=== PATIENT | female | born 1950 | race Caucasian/White ===

== ENCOUNTER 2017-05-09 08:45 | Inpatient (IN) | payer MEDICARE, BC ==
[2017-05-09 09:11] VITALS: BMI 23.9
[2017-05-16] MEDS ORDERED: Sodium Chloride 0.9% 0 ML ONE (08:41)
[2017-05-16] MEDS ORDERED: traMADol HCl 50 MG TAB PO PRN ×2 (08:47→09:34)
[2017-05-16] MEDS ORDERED: HYDROcodone/Acetaminophen 10/325 mg Tablet PO PRN ×4 (08:47→09:34)
[2017-05-16] MEDS ORDERED: Ondansetron HCl/PF 4 MG/2 ML Vial IVP PRN ×3 (08:47→11:11)
[2017-05-16] MEDS ORDERED: Fentanyl 100 MCG/2 ML VIAL SLOW IVP PRN ×2 (08:47)
[2017-05-16] MEDS ORDERED: Acetaminophen 325 MG TAB PO PRN (08:47)
[2017-05-16] MEDS ORDERED: diphenhydrAMINE HCl 25 MG CAP PO PRN (08:47)
[2017-05-16] MEDS ORDERED: Zolpidem Tartrate 5 MG TAB PO PRN ×2 (08:47→09:34)
[2017-05-16] MEDS ORDERED: Promethazine HCl 25 MG/ML VIAL IM PRN ×3 (08:47→11:11)
[2017-05-16] MEDS ORDERED: Fentanyl 100 MCG/2 ML VIAL ONE ×4 (08:50→11:32)
[2017-05-16] MEDS ORDERED: Midazolam HCl 2 mg/2 ml Vial ONE (08:58)
[2017-05-16] MEDS ORDERED: Ferrous Gluconate 324 MG TAB PO SCH (09:00)
[2017-05-16] MEDS ORDERED: Tranexamic Acid 1,000 MG in Sodium Chloride 0.9% 100 ML IVPB SCH (09:00)
[2017-05-16] MEDS ORDERED: Bupivacaine/Epinephrine 0.5% 10 ML VIAL ONE (09:17)
[2017-05-16] MEDS ORDERED: Ropivacaine HCl/PF 250 ML in Premix Bag 1 BAG NERVE BLCK SCH (09:34)
[2017-05-16] MEDS ORDERED: Fentanyl 100 MCG/2 ML VIAL IV PRN (09:35)
[2017-05-16] MEDS ORDERED: Ondansetron HCl/PF 4 MG/2 ML Vial ONE (09:55)
[2017-05-16] MEDS ORDERED: ePHEDrine/0.9% NaCl/PF SYRINGE 50 mg/10 ml ONE (09:55)
[2017-05-16] MEDS ORDERED: Dexamethasone 20 MG/5 ML VIAL ONE (09:55)
[2017-05-16] MEDS ORDERED: Propofol 200 MG/20 ML VIAL ONE (09:55)
[2017-05-16] MEDS ORDERED: Promethazine HCl 25 MG/ML VIAL SLOW IVP PRN (11:11)
[2017-05-16] MEDS ORDERED: HYDROmorphone 2 MG/ML VIAL SLOW IVP PRN (11:11)
[2017-05-16] MEDS ORDERED: Clindamycin/D5W 900 MG in Premix Bag 1 BAG IVPB SCH (12:00)
[2017-05-16] MEDS ORDERED: Ketorolac Tromethamine 30 MG/ML VIAL IM SCH (14:00)
--- NOTE | 2017-05-16 14:03 | RAD ---
TWO VIEWS LEFT KNEE: Date: 05-16-17 History: Post left total knee replacement. FINDINGS: Post-surgical changes related to left total knee replacement. There is no hardware complication seen . Subcutaneous emphysema is present with gas overlying a suprapatellar location related to recent po st-surgical change. There is no fracture or dislocation. IMPRESSION: Post-surgical changes related to recent left total knee replacement. POS: [facility]
[2017-05-16] MEDS: Sodium Chloride 0.9% 1,000 ML IV SCH ×2 (14:15→17:22)
[2017-05-16] MEDS: Senokot S 8.6-50 MG TAB PO SCH ×2 (14:15→20:22)
[2017-05-16] MEDS: Aspirin 325 MG TAB PO SCH ×2 (14:15→20:22)
[2017-05-16] MEDS: Citrucel 500 MG TAB PO SCH (14:15)
[2017-05-16] MEDS: Ketorolac Tromethamine 30 MG/ML VIAL IVP SCH ×6 (14:41→20:59)
--- NOTE | 2017-05-16 15:39 | CON ---
DATE OF CONSULTATION: 05/16/2017 PRIMARY CARE PROVIDER: Dr. Yahir Perkins. REFERRING DOCTOR: Dr. Hunter Fraser. Consult for medical management of postoperative patient. HISTORY OF PRESENT ILLNESS: The patient with chronic degenerative arthritis, is now left total knee replacement. She required knee replacement for continuing activities of daily living such as stand ing and walking. Postoperatively, she has had no chest pain, shortness of breath, nausea, vomiting, chills, or sweats. PAST MEDICAL HISTORY: Pertinent for Crohn's disease, stress incontinence, mitral prolapse, and oste oarthritis. HOME MEDICINES: Include Myrbetriq 25 mg a day, Citrucel 500 mg daily, ibuprofen 200 mg q.6 hours fo r pain, aspirin 325 mg a day, Colazal 2250 mg p.o. t.i.d. ALLERGIES: To CODEINE, nausea and vomiting and SULFA allergy rash. PAST SURGICAL HISTORY: Appendectomy, tonsillectomy, tubal ligation, both in the distant past. FAMILY HISTORY: Father very young. Mother of Alzheimer's disease. She has an uncle who is with coronary artery disease. Grandmother who with coronary artery disease and ano ther uncle with diabetes mellitus. SOCIAL HISTORY: , at bedside. CODE STATUS: FULL CODE STATUS. TOBACCO: None. ALCOHOL: She has 2 cocktails daily, usually 1 with [place] or with white wine. REVIEW OF SYSTEMS: GENERAL: No headaches, dizziness, fainting, fever, sweats or chills. EYES: Igor copeland has astigmatism and has poor vision without her glasses. She has had no double vision, flashing l ights. EARS, NOSE, AND THROAT: No ear pain or drainage. No nasal bleeding. No trouble swallowing . CARDIAC: No chest pain, orthopnea or paroxysmal nocturnal dyspnea. RESPIRATORY: No cough, whee zing or asthma. GASTROINTESTINAL: She has occasional flares of abdominal pain and diarrhea, maybe once or twice a year. She has had nothing recently. No blood in her stools. GENITOURINARY: She h as stress incontinence, no hematuria or dysuria. MUSCULOSKELETAL: No pain or swelling in the muscl es of her legs. She does have aches and pains in multiple joints. NEUROLOGIC: No strokes, seizure s or focal weakness. PSYCHIATRIC: No anxiety or depression. SKIN: No bruising, bleeding or rash. HEME/LYMPH: No tender or swollen lymph nodes in axilla, inguinal or cervical area. PHYSICAL EXAMINATION: GENERAL: She is an alert, pleasant, cooperative lady, family at bedside. VITAL SIGNS: Blood pressure 151/84, pulse 78, respirations 16, temperature 97.2, O2 sat 96%. HEENT: Examination of her head, eyes, ears, nose, and throat reveal pupils equal, round, and reacti ve. Extraocular movements are intact. Sclerae white. Tympanic membranes clear. Nose clear. Oral mucous membranes are wet. Dental hygiene is good. NECK: Reveals no jugular venous distention, adenopathy, thyromegaly or bruits. CHEST: Clear to auscultation and percussion. HEART: Had regular rate and rhythm. First and second heart sounds were audible. She had a soft in termittent 2/6 systolic murmur at left sternal border. ABDOMEN: Soft, bowel sounds are normal. There is no hepatosplenomegaly, no mass, no rebound, no br uits. EXTREMITIES: Reveal no cyanosis, clubbing or edema. SKIN: Warm and dry without bruises or rash. PULSES: Carotid, radial, femoral, and dorsalis pedis pulses intact. HEME/LYMPH: There are no enlarged or tender lymph nodes in axilla, inguinal or cervical area. NEUROLOGICAL: Cranial nerves II-XII are intact. Moved all extremities. Sensation intact. IMAGING AND LABORATORY DATA: There is an electrocardiogram on the chart, which I have reviewed. Re gular sinus rhythm, right axis deviation. EKG is within normal limits. No x-ray is presented. Lab oratory was done as an outpatient. CBC, normal. PT/INR, normal. Basic metabolic profile normal. Urine clear. All reviewed by me. ADMITTING DIAGNOSES: 1. Postoperative left total knee replacement. 2. Severe osteoarthritis. 3. Crohn's disease, currently quiescent. 4. Stress incontinence. 5. Mitral prolapse. The patient has been seen, examined and evaluated. She is currently stable, d oing well postoperatively. We will follow with you.
[2017-05-16] MEDS: Calcium Carbonate + Vit D 1 TAB PO SCH (20:24)
[2017-05-17] MEDS: traMADol HCl 50 MG TAB PO PRN ×3 (04:48→15:07)
[2017-05-17] MEDS: Sodium Chloride 0.9% 1,000 ML IV SCH ×2 (05:03→15:32)
[2017-05-17 05:39] LABS: Hematocrit 35.7 % (36.0-47.0); Mean Platelet Volume 7.4 fL (7.4-10.4); Red Blood Cell (RBC) Count 3.67 mill/uL (4.20-5.40); White Blood Cell (WBC) Count 10.1 thou/uL (4.8-10.8)
[2017-05-17] MEDS: Ferrous Gluconate 324 MG TAB PO SCH ×2 (08:07→21:45)
[2017-05-17] MEDS: Senokot S 8.6-50 MG TAB PO SCH ×2 (08:07→21:42)
[2017-05-17] MEDS: Calcium Carbonate + Vit D 1 TAB PO SCH ×2 (08:08→21:42)
[2017-05-17] MEDS: Multivitamin W/ Minerals 1 TAB PO SCH (08:08)
[2017-05-17] MEDS: Aspirin 325 MG TAB PO SCH ×2 (08:08→21:43)
[2017-05-17] MEDS: Ketorolac Tromethamine 30 MG/ML VIAL IVP SCH ×3 (08:27→21:44)
--- NOTE | 2017-05-17 09:46 | PDOC.PN ---
- Subjective Encounter Start Date: 05/17/17 Encounter Start Time: 07:00 -: old records requested/rev - Objective MAR Reviewed: Yes Vital Signs & Weight: Vital Signs (12 hours) Temp Pulse Resp BP Pulse Ox 05/17/17 07:40 98 F 70 18 123/74 99 05/17/17 03:52 98 F 80 16 136/77 05/17/17 00:11 80 121/71 Weight Weight 144 lb I&O: 05/16/17 05/17/17 05/18/17 06:59 06:59 06:59 Intake Total 400 Output Total 1100 Balance -700 Result Diagrams: 05/17/17 04:40 Phys Exam - Physical Examination Constitutional: NAD HEENT: PERRLA, moist MMs, sclera anicteric Neck: no JVD, supple Respiratory: no wheezing, no rales, no rhonchi Cardiovascular: RRR, no significant murmur, no rub Gastrointestinal: soft, non-tender, no distention, positive bowel sounds Musculoskeletal: no edema, pulses present left knee with dressing, nerve block in place, gutierrez+ Neurological: non-focal, normal sensation Psychiatric: normal affect, A&O x 3 Skin: no rash, normal turgor Dx/Plan (1) Status post total left knee replacement Code(s): Z96.652 - PRESENCE OF LEFT ARTIFICIAL KNEE JOINT Status: Acute (2) Osteoarthritis Code(s): M19.90 - UNSPECIFIED OSTEOARTHRITIS, UNSPECIFIED SITE Status: Chronic (3) Crohn's disease Code(s): K50.90 - CROHN'S DISEASE, UNSPECIFIED, WITHOUT COMPLICATIONS Status: Chronic - Plan cont current plan of care, PT/OT * continue aspirin for DVT prophylaxis * continue pepcid for GI prophylaxis * code status- full code * PT/OT as per [facility] protocol * pain controlled * continue home medication * nerve block as per anesthesia. Review of Systems - Review of Systems ENT: negative: Ear Pain, Ear Discharge, Nose Pain, Nose Discharge, Nose Congestion, Mouth Pain, Mouth Swelling, Throat Pain, Throat Swelling, Other Respiratory: negative: Cough, Dry, Shortness of Breath, Hemoptysis, SOB with Excertion, Pleuritic Pain, Sputum, Wheezing Cardiovascular: negative: Chest Pain, Palpitations, Orthopnea, Paroxysmal Noc. Dyspnea, Edema, Light Headedness, Other Gastrointestinal: negative: Nausea, Vomiting, Abdominal Pain, Diarrhea, Constipation, Melena, Hematochezia, Other Genitourinary: negative: Dysuria, Frequency, Incontinence, Hematuria, Retention , Other Musculoskeletal: negative: Neck Pain, Shoulder Pain, Arm Pain, Back Pain, Hand Pain, Leg Pain, Foot Pain, Other - Medications/Allergies Allergies/Adverse Reactions: Allergies Allergy/AdvReac Type Severity Reaction Status Date / Time codeine Allergy violently Verified 05/09/17 09:12 ill Sulfa (Sulfonamide Allergy Verified 05/09/17 09:12 Antibiotics) Medications: Current Medications Acetaminophen (Tylenol) 650 mg PO Q4H PRN PRN Reason: ZHANG/ T > 101F; Mild Pain (1-3) Hydrocodone Bitart/Acetaminophen ([place] 10/325) 1 tab PO Q4H PRN PRN Reason: Pain (1-3) Hydrocodone Bitart/Acetaminophen ([place] 10/325) 2 tab PO Q4H PRN PRN Reason: PAIN (4-6) Aspirin (Aspirin) 325 mg PO BID [facility] Last Admin: 05/17/17 08:08 Dose: 325 mg Balsalazide (Colazal) 2,250 mg PO TID [facility] Last Admin: 05/17/17 08:08 Dose: 1,500 mg Calcium/Vitamin D (Caltrate 600 + Vit D) 1 tab PO BID [facility] Last Admin: 05/17/17 08:08 Dose: 1 tab Diphenhydramine HCl (Benadryl) 25 mg PO Q6H PRN PRN Reason: Itching Fentanyl (Sublimaze) 50 mcg IV Q1H PRN PRN Reason: Breakthrough pain Ferrous Gluconate (Fergon) 324 mg PO BID [facility] Last Admin: 05/17/17 08:07 Dose: 324 mg Sodium Chloride (Normal Saline 0.9%) 1,000 mls @ 100 mls/hr IV .Q10H [facility] Last Admin: 05/17/17 05:03 Dose: Not Given Ropivacaine 250 ml/ Device 250 mls @ 10 mls/hr NERVE BLCK INF [facility] Iron/Minerals/Multivitamins (Theragran M) 1 tab PO DAILY [facility] Last Admin: 05/17/17 08:08 Dose: 1 tab Ketorolac Tromethamine (Toradol) 15 mg IVP 0300,0900,1500,2100 [facility] Stop: 05/18/17 15:01 Last Admin: 05/17/17 08:27 Dose: 15 mg Methylcellulose (Citrucel) 500 mg PO DAILY [facility] Last Admin: 05/16/17 14:15 Dose: Not Given Mirabegron (Myrbetriq Er) 25 mg PO QAM [facility] Last Admin: 05/17/17 09:38 Dose: 25 mg Ondansetron HCl (Zofran) 4 mg IVP Q6H PRN PRN Reason: Nausea/Vomiting Ondansetron HCl (Zofran) 4 mg IVP Q6H PRN PRN Reason: Nausea/Vomiting Promethazine HCl (Phenergan) 12.5 mg IM Q4H PRN PRN Reason: Nausea/Vomiting Promethazine HCl (Phenergan) 12.5 mg IM Q4H PRN PRN Reason: Nausea Senna/Docusate Sodium (Senokot S) 2 tab PO BID [facility] Last Admin: 05/17/17 08:07 Dose: 2 tab Sodium Chloride (Flush - Normal Saline) 10 ml IVF PRN PRN PRN Reason: Saline Flush Tramadol HCl (Ultram) 50 mg PO Q6H PRN PRN Reason: Mild Pain (1-3) Tramadol HCl (Ultram) 100 mg PO Q6H PRN PRN Reason: Moderate Pain 4-6 Last Admin: 05/17/17 04:48 Dose: 100 mg Zolpidem Tartrate (Ambien) 5 mg PO HSPRN PRN PRN Reason: Insomnia
[2017-05-17] MEDS ORDERED: Milk Of Magnesia 30 ML UDCUP PO PRN (09:47)
[2017-05-17] MEDS ORDERED: Loperamide HCl 2 MG CAP PO PRN (09:47)
[2017-05-17] MEDS ORDERED: Artificial Tears 18 DROP/0.9 ML EA EYE PRN (09:47)
[2017-05-17] MEDS ORDERED: Diabetic Tussin 200 MG/10 ML UDCUP PO PRN (09:47)
[2017-05-17] MEDS ORDERED: Eucerin (Mineral Oil/Petrolatum,White) 30 gm Jar TOP PRN (09:47)
[2017-05-17] MEDS ORDERED: Loratadine 10 MG TAB PO PRN (09:47)
[2017-05-17] MEDS ORDERED: Mag-Al 1200 mg/1200 mg/30 ML UDCUP PO PRN (09:47)
[2017-05-17] MEDS ORDERED: Senokot 8.6 MG TAB PO PRN (09:47)
[2017-05-17] MEDS ORDERED: Sodium Chloride 0.65% Nasal 44 ML BOT EA NARE PRN (09:47)
[2017-05-17] MEDS: Citrucel 500 MG TAB PO SCH (10:05)
[2017-05-17] MEDS: Famotidine 20 MG TAB PO SCH (21:44)
[2017-05-18] MEDS: Sodium Chloride 0.9% 1,000 ML IV SCH (00:02)
[2017-05-18] MEDS: Ketorolac Tromethamine 30 MG/ML VIAL IVP SCH ×2 (04:00→08:17)
[2017-05-18 05:16] LABS: Mean Platelet Volume 7.1 fL (7.4-10.4); Red Blood Cell (RBC) Count 3.41 mill/uL (4.20-5.40); White Blood Cell (WBC) Count 7.6 thou/uL (4.8-10.8)
[2017-05-18] MEDS ORDERED: oxyCODONE/Acetaminophen 5 mg/325 mg Tablet PO PRN (07:38)
[2017-05-18] MEDS: Famotidine 20 MG TAB PO SCH (08:16)
[2017-05-18] MEDS: Ondansetron ODT 4 MG TAB PO PRN ×2 (08:16→14:02)
[2017-05-18] MEDS: Aspirin 325 MG TAB PO SCH (08:17)
[2017-05-18] MEDS: Calcium Carbonate + Vit D 1 TAB PO SCH (08:17)
[2017-05-18] MEDS: Senokot S 8.6-50 MG TAB PO SCH (08:17)
[2017-05-18] MEDS: Ferrous Gluconate 324 MG TAB PO SCH (09:30)
[2017-05-18] MEDS: Multivitamin W/ Minerals 1 TAB PO SCH (09:30)
[2017-05-18] MEDS: Citrucel 500 MG TAB PO SCH (09:30)
[2017-05-18] MEDS: oxyCODONE/Acetaminophen 5 mg/325 mg Tablet PO PRN ×2 (09:37→14:36)
--- NOTE | 2017-05-18 11:27 | PDOC.PN ---
- Subjective Encounter Start Date: 05/18/17 Encounter Start Time: 07:10 Patient seen and examined. No new complaints. No overnight events - Objective MAR Reviewed: Yes Vital Signs & Weight: Vital Signs (12 hours) Temp Pulse Resp BP Pulse Ox 05/18/17 08:00 98.5 F 83 16 94 L 05/18/17 07:40 98.5 F 83 16 136/80 94 L 05/18/17 05:13 98.9 F 74 16 126/78 99 05/18/17 00:00 98.1 F 74 16 108/68 96 Weight Admit Weight 144 lb Weight 144 lb I&O: 05/17/17 05/18/17 05/19/17 06:59 06:59 06:59 Intake Total 400 221.0 480 Output Total 1100 3800 1900 Balance -700 -3579.0 -1420 Result Diagrams: 05/18/17 04:50 Phys Exam - Physical Examination Constitutional: NAD HEENT: PERRLA, moist MMs, sclera anicteric Neck: no JVD, supple Respiratory: no wheezing, no rales, no rhonchi Cardiovascular: RRR, no significant murmur, no rub Gastrointestinal: soft, non-tender, no distention, positive bowel sounds Musculoskeletal: no edema, pulses present Neurological: non-focal, normal sensation, moves all 4 limbs Psychiatric: normal affect, A&O x 3 Skin: no rash, normal turgor Dx/Plan (1) Status post total left knee replacement Code(s): Z96.652 - PRESENCE OF LEFT ARTIFICIAL KNEE JOINT Status: Acute (2) Osteoarthritis Code(s): M19.90 - UNSPECIFIED OSTEOARTHRITIS, UNSPECIFIED SITE Status: Chronic (3) Crohn's disease Code(s): K50.90 - CROHN'S DISEASE, UNSPECIFIED, WITHOUT COMPLICATIONS Status: Chronic - Plan cont current plan of care, PT/OT * medication reviewed as below * medically stable with current treatment * symptomatic treatment * continue aspirin for DVT prophylaxis * continue pepcid for GI prophylaxis * plan for discharge later today * will sign off. Review of Systems - Review of Systems ENT: negative: Ear Pain, Ear Discharge, Nose Pain, Nose Discharge, Nose Congestion, Mouth Pain, Mouth Swelling, Throat Pain, Throat Swelling, Other Respiratory: negative: Cough, Dry, Shortness of Breath, Hemoptysis, SOB with Excertion, Pleuritic Pain, Sputum, Wheezing Cardiovascular: negative: Chest Pain, Palpitations, Orthopnea, Paroxysmal Noc. Dyspnea, Edema, Light Headedness, Other Gastrointestinal: negative: Nausea, Vomiting, Abdominal Pain, Diarrhea, Constipation, Melena, Hematochezia, Other Genitourinary: negative: Dysuria, Frequency, Incontinence, Hematuria, Retention , Other Musculoskeletal: negative: Neck Pain, Shoulder Pain, Arm Pain, Back Pain, Hand Pain, Leg Pain, Foot Pain, Other - Medications/Allergies Allergies/Adverse Reactions: Allergies Allergy/AdvReac Type Severity Reaction Status Date / Time codeine Allergy violently Verified 05/09/17 09:12 ill Sulfa (Sulfonamide Allergy Verified 05/09/17 09:12 Antibiotics) Medications: Current Medications Acetaminophen (Tylenol) 650 mg PO Q4H PRN PRN Reason: ZHANG/ T > 101F; Mild Pain (1-3) Al Hydroxide/Mg Hydroxide (Maalox) 15 ml PO Q4H PRN PRN Reason: Heartburn or Indigestion Artificial Tears (Tears Naturale) 0 drop EA EYE PRN PRN PRN Reason: Dry Eyes Aspirin (Aspirin) 325 mg PO BID [facility] Last Admin: 05/18/17 08:17 Dose: 325 mg Balsalazide (Colazal) 2,250 mg PO TID [facility] Last Admin: 05/18/17 08:17 Dose: 1,500 mg Calcium/Vitamin D (Caltrate 600 + Vit D) 1 tab PO BID [facility] Last Admin: 05/18/17 08:17 Dose: 1 tab Diphenhydramine HCl (Benadryl) 25 mg PO Q6H PRN PRN Reason: Itching Famotidine (Pepcid) 20 mg PO BID [facility] Last Admin: 05/18/17 08:16 Dose: 20 mg Fentanyl (Sublimaze) 50 mcg IV Q1H PRN PRN Reason: Breakthrough pain Ferrous Gluconate (Fergon) 324 mg PO BID [facility] Last Admin: 05/18/17 09:30 Dose: Not Given Guaifenesin (Robitussin Sf) 200 mg PO Q4H PRN PRN Reason: Cough Hydralazine HCl (Apresoline) 10 mg SLOW IVP Q4H PRN PRN Reason: Systolic BP > 180 Sodium Chloride (Normal Saline 0.9%) 1,000 mls @ 100 mls/hr IV .Q10H [facility] Last Admin: 05/18/17 00:02 Dose: Not Given Ropivacaine 250 ml/ Device 250 mls @ 10 mls/hr NERVE BLCK INF [facility] Last Admin: 05/17/17 12:18 Dose: 250 mls Iron/Minerals/Multivitamins (Theragran M) 1 tab PO DAILY [facility] Last Admin: 05/18/17 09:30 Dose: 1 tab Ketorolac Tromethamine (Toradol) 15 mg IVP 0300,0900,1500,2100 [facility] Stop: 05/18/17 15:01 Last Admin: 05/18/17 08:17 Dose: 15 mg Loperamide HCl (Imodium) 2 mg PO PRN PRN PRN Reason: Diarrhea/Loose Stools Loratadine (Claritin) 10 mg PO DAILYPRN PRN PRN Reason: Sinus Symptoms Magnesium Hydroxide (Milk Of Magnesium) 30 ml PO DAILYPRN PRN PRN Reason: Constipation Methylcellulose (Citrucel) 500 mg PO DAILY [facility] Last Admin: 05/18/17 09:30 Dose: Not Given Mineral Oil/White Petrolatum (Eucerin Cream) 0 gm TOP BIDPRN PRN PRN Reason: Dry Skin Mirabegron (Myrbetriq Er) 25 mg PO QAM [facility] Last Admin: 05/18/17 08:17 Dose: 25 mg Ondansetron HCl (Zofran) 4 mg IVP Q6H PRN PRN Reason: Nausea/Vomiting Last Admin: 05/17/17 17:58 Dose: 4 mg Ondansetron HCl (Zofran Odt) 4 mg PO Q6H PRN PRN Reason: Nausea/Vomiting Last Admin: 05/18/17 08:16 Dose: 4 mg Oxycodone/Acetaminophen (Percocet 5/325) 1 tab PO Q4H PRN PRN Reason: Mild-Moderate Pain (1-5) Last Admin: 05/18/17 09:37 Dose: 1 tab Oxycodone/Acetaminophen (Percocet 5/325) 2 tab PO Q4H PRN PRN Reason: Moderate to Severe Pain (6-10) Promethazine HCl (Phenergan) 12.5 mg IM Q4H PRN PRN Reason: Nausea/Vomiting Senna (Senokot) 2 tab PO HSPRN PRN PRN Reason: Constipation Senna/Docusate Sodium (Senokot S) 2 tab PO BID [facility] Last Admin: 05/18/17 08:17 Dose: 2 tab Sodium Chloride (Flush - Normal Saline) 10 ml IVF PRN PRN PRN Reason: Saline Flush Last Admin: 05/18/17 04:00 Dose: 10 ml Sodium Chloride ([place] Nasal [place] 0.65%) 0 ml EA NARE QIDPRN PRN PRN Reason: Nasal Congestion Tramadol HCl (Ultram) 50 mg PO Q6H PRN PRN Reason: Mild Pain (1-3) Tramadol HCl (Ultram) 100 mg PO Q6H PRN PRN Reason: Moderate Pain 4-6 Last Admin: 05/17/17 15:07 Dose: 100 mg Zolpidem Tartrate (Ambien) 5 mg PO HSPRN PRN PRN Reason: Insomnia
--- NOTE | 2017-05-18 11:43 | DIS ---
DATE OF ADMISSION: 05/16/2017 DATE OF DISCHARGE: 05/18/2017 PRIMARY CARE PHYSICIAN: Dr. Yahir Perkins. PRIMARY ATTENDING: Dr. Hunter Fraser. DISCHARGE DISPOSITION: Home. PRIMARY DISCHARGE DIAGNOSIS: Status post left total knee replacement. SECONDARY DISCHARGE DIAGNOSES: Osteoarthritis, Crohn's disease. PRIMARY PROCEDURE/OPERATION: Left total knee replacement by Dr. Fraser. RADIOLOGICAL INVESTIGATION: Knee x-ray. SIGNIFICANT LABS: Hemoglobin 10.7. DISCHARGE MEDICATIONS: Aspirin 325 mg p.o. b.i.d., Colazal 2250 mg p.o. t.i.d., calcium with vitami n D 1 tablet p.o. b.i.d., Citrucel 500 mg p.o. daily, mirabegron 25 mg p.o. daily. CONTRAINDICATIONS: None. CODE STATUS: FULL CODE. INPATIENT CONSULTANTS: Dr. Fraser was primary while in hospital. Diane team was consulted for [place] [facility] comanagement. TEST RESULTS PENDING ON DISCHARGE: None. ALLERGIES: CODEINE and SULFA DRUGS. DISCHARGE PLAN: Post hospital, the patient will follow up with primary care physician, Dr. Fraser a s sandra. HOSPITAL COURSE: A 67-year-old female who was electively admitted by Dr. Fraser for left total knee replacement, which was done on 05/16/2017 without any complication. Postoperatively, at [facility], diane team was consulted for medical comanagement. The patient's medical problems remained stable. We continued all her home medication while in hospital as well as on discharge, the patient was given aspirin for DVT prophylaxis. The patient is seen and examined at bedside today. Please see my progress note from today for furth er details.
[2017-05-18 13:16] VITALS: BP 108/70; TEMP 98.4
--- NOTE | 2017-05-19 14:27 | OP ---
PREOPERATIVE DIAGNOSIS: Degenerative joint disease to left knee. POSTOPERATIVE DIAGNOSIS: Degenerative joint disease to left knee. SURGEON: Hunter Fraser M.D. LIBRARY CATALOGING TECHNICIAN: Roby Hidalgo PA-C. BLOOD LOSS: Minimal. SPECIMEN: None. DRAINS: None. COMPLICATIONS: None. IMPLANTS USED: [place] [employer] 4 femur, 4 tibia, 11 mm CSX3 polyethylene hole, A29 patella. PROCEDURE IN DETAIL: After informed consent was obtained in the preoperative holding area. The pat ient was taken to the operative suite where general anesthesia was induced. Once adequate level of general anesthesia was obtained, the patient was positioned and a well-padded tourniquet was placed around the left proximal thigh. The left lower extremity was then prepped and draped in the usual s terile fashion. Prior to exsanguination, a time out was called and all members of the surgical team agreed upon site, surgeon, and patient. The extremity was then exsanguinated and the tourniquet wa s raised. A midline longitudinal incision was then made directly over the patella extending two fin gerbreadths above the superior pole of the patella and two fingerbreadths inferior to the inferior p atellar pole of the patella. Deeper subcutaneous layers were dissected sharply and local bleeding w as controlled with Bovie electrocautery. A quad tendon longitudinal split was then made sharply and a median parapatellar arthrotomy was carried out both sharp and with Bovie electrocautery, carried down to one fingerbreadth medial to the tibial tubercle. The knee was then placed into flexion and the patella was everted nicely, and a copious fat pad ectomy was performed allowing for greater expo sure of the tibia. The computer-assisted distal femoral fiducial was then placed and pinned firmly, and the distal femoral cutting guide was pinned firmly into place. The oscillating saw was then us ed to remove the appropriate amount of bone. The 4-in-1 cutting block was then placed on the distal femur and the oscillating saw was used to remove the appropriate amount of bone off of the anterior , posterior, and chamfer cuts. After completion of bone cuts, the anterior cruciate ligament was re sected sharply and the posterior cruciate ligament retractor was placed and the tibia was subluxed f or better exposure. Partial meniscectomies were carried out, and the tibial computer-assisted fiduc ial was pinned, and the cutting guide was placed. Oscillating saw was then used to remove the bone with Hohmann retractors used to take care and protect the collateral ligaments. After the tibial re section was performed, a laminar ice hockey coach was placed in between the freshened bone cuts. The knee p laced at 90 degrees and further bilateral meniscectomies were carried out, and the curved osteotome and curettage was used to remove any excess bone spurs in the posterior compartment. Exparel was th en injected into the posterior capsule, wei-articular synovia, pre-patella synovia, and musculature surrounding the capsule. The trial femoral component, tibial baseplate were placed with the approp riate polyethylene trial insert with an appropriate polyethylene spacer and patellar button. The kn ee was taken through full range of motion with flexion and extension from 0-90 degrees and patellar broach squarely in the trochlea without any squinting or subluxation noted. The knee was also stabl e to varus and valgus stressing at 0, 15, 45, and 90 degrees of flexion. The drawer was negative. A ll trial components were then removed and the keel punch was used to provide the appropriate defect in the tibia with a mallet. The freshened bone cuts were copiously irrigated with pulsatile lavage of about 1-1/2 liters to remove all excess debris. The freshened bone cuts were then dried and with suction and lap sponge. The knee was placed in flexion and retractors were placed to provide acces s to all bone cuts. Tobramycin impregnated methyl methacrylate cement was then placed on the freshe linda bone cuts and implants which were malleted firmly into place. Curettage and [place] elevators wer e used to remove any excess bone cement. The knee was placed into full extension and the patellar b utton was placed under compression, and the cement was allowed to cure. Once completed, the compone nts were again taken through full range of motion and copious irrigation of the knee was carried out with another liter of normal saline. All components were inspected fully with full range of motion and varus and valgus stressing. There was no laxity noted and full extension was observed clinicall y. Primary closure was accomplished with #2 interrupted Vicryl stitch of the arthrotomy defect. Th is was oversewn with a #2 running Quill barbed stitch. The gravitational platelet system was then i njected into the arthrotomy prior to closure. The subcutaneous layer was then closed with a running 0 barbed Monocryl stitch and skin closure accomplished with a running subcuticular 3-0 Monocryl bar bed Quill stitch and augmented with cement on the skin. Tourniquet was lowered. Good spontaneous r eturn of distal pulses was noted clinically and a sterile dressing was applied to the incision. The procedure was terminated without any complications. The patient was awakened in the operative suit e and the tourniquet was removed, and the patient was taken to the recovery room in stable condition .
== END 2017-05-18 14:59 | disposition home or self-care (01) | DRG 470 ==
LOC: SURG A 05-16 07:55 → SJJU 05-16 11:35
PROVIDERS: ADMIT Orthopaedic Surgery; ATTEND Orthopaedic Surgery
PROC: 0SRD0J9 Replacement of Left Knee Joint with Synthetic Substitute, Cemented, Open Approach (ICD-10-PCS; principal; 2017-05-16)
PROC: 3E0T3BZ Introduction of Anesthetic Agent into Peripheral Nerves and Plexi, Percutaneous Approach (ICD-10-PCS; 2017-05-16)
DX: M17.12 Unilateral primary osteoarthritis, left knee (principal); K50.90 Crohn's disease, unspecified, without complications; Z88.5 Allergy status to narcotic agent; Z88.2 Allergy status to sulfonamides; N39.3 Stress incontinence (female) (male); I34.1 Nonrheumatic mitral (valve) prolapse; Z79.82 Long term (current) use of aspirin
CPT/HCPCS: 36415; 85027; C1713; C1776; G8978-GP-CM; G8979-GP-CI; J1100; J1885; J2250; J2405; J2704; J2795; J3010; J3370; J3490; J7050; J8499; Q0162

== ENCOUNTER 2017-05-09 08:47 | Outpatient (CLI) | payer MEDICARE, BC ==
[2017-05-09 13:50] LABS: Hematocrit 42.3 % (36.0-47.0); Mean Platelet Volume 7.4 fL (7.4-10.4); Red Blood Cell (RBC) Count 4.41 mill/uL (4.20-5.40); White Blood Cell (WBC) Count 8.5 thou/uL (4.8-10.8)
[2017-05-09 13:52] LABS: Bilirubin Negative (Negative); Blood, Urine Negative (Negative); Glucose, Urine (Dipstick) Negative (Negative); Ketone, Urine Negative (Negative); Nitrite Negative (Negative); Protein, Urine (Dipstick) Negative (Neg-Trace); Urobilinogen 0.2 mg/dL (0.2-1.0)
[2017-05-09 13:57] LABS: Bacteria/HPF None Seen HPF (None Seen); Hyaline Casts/LPF 0-3 HYALINE CAST LPF (0-3 Hyaline); RBC/HPF 0-3 HPF (0-3); Squamous Epithelial None Seen HPF (0-3); WBC/HPF None Seen HPF (0-3)
[2017-05-09 13:58] LABS: PTT 28.1 SEC (22.9-36.1); Prothrombin Time 12.9 SEC (12.0-14.7)
--- NOTE | 2017-05-09 14:11 | RAD ---
TWO VIEWS CHEST: Comparison: None. History: Pre-operative radiograph. FINDINGS: Two views of the chest show normal sized cardiomediastinal silhouette. There is no evidence of conso lidation, mass, or pleural effusion. The bones are unremarkable. IMPRESSION: No evidence of acute cardiopulmonary disease. POS: [facility]
[2017-05-09 14:16] LABS: Anion Gap 15 mmol/L (10-20); BUN (Urea Nitrogen) 12 mg/dL (9.8-20.1); Calc. Creatinine Clearance 0 mL/min (70-130); Carbon Dioxide 28 mmol/L (23-31); Chloride 103 mmol/L (98-107); Estimated GFR-MDRD 78
== END 2017-05-09 08:48 | disposition home or self-care (01) ==
LOC: LABBT 08:47
PROVIDERS: ATTEND Orthopaedic Surgery
DX: Z01.818 Encounter for other preprocedural examination (principal); M17.12 Unilateral primary osteoarthritis, left knee
CPT/HCPCS: 71020; 80048; 81001; 85027; 85610; 85730; 86850; 86900; 86901; 87081

== ENCOUNTER 2018-03-06 10:28 | Outpatient (CLI) | payer MEDICARE, BC ==
--- NOTE | 2018-03-06 12:23 | RAD ---
CHEST 2 VIEWS: Date: 03/06/18 HISTORY: Cough. COMPARISON: 05/09/17. FINDINGS: Cardiac silhouette and pulmonary vasculature are unremarkable. Lungs remain hyperinflated. Mediastinu m is midline. No confluent air space consolidation, pneumothorax, or pleural fluid are apparent. IMPRESSION: No active cardiopulmonary abnormalities are demonstrated. POS: [facility]
== END 2018-03-06 10:29 | disposition home or self-care (01) ==
LOC: SCSRAD 10:28
PROVIDERS: ATTEND Internal Medicine
DX: R05 Cough (principal)
CPT/HCPCS: 71046

== ENCOUNTER 2021-06-22 10:48 | Outpatient (CLI) | payer MEDICARE, BC | END 2021-06-22 10:49 | disposition home or self-care (01) | LOC: BICMAMMO 10:48 | PROVIDERS: ATTEND Internal Medicine | DX: Z12.31 Encounter for screening mammogram for malignant neoplasm of breast (principal) | CPT/HCPCS: 77063; 77067 ==

== ENCOUNTER 2022-02-03 11:40 | Outpatient (CLI) | payer MEDICARE, BC ==
[2022-02-03 12:47] LABS: #Basophils 0.1 10x3/uL (0.0-0.2); #Eosinphils 0.3 10x3/uL (0.0-0.5); #Monocytes 0.7 10x3/uL (0.0-1.1); %Basophils 1.1 % (0.0-2.0); %Monocytes 10.9 % (0.0-10.0); %Neutrophils 64.8 % (40.0-75.0); Hemoglobin 12.2 g/dL (12.0-15.5); Mean Corpuscular HGB CONC 32.1 g/dL (32.0-36.0); Mean Corpuscular Hemoglobin 30.3 pg (27.0-33.0); Mean Corpuscular Volume 94.3 fl (81.6-98.3); Mean Platelet Volume 9.8 fl (7.4-10.4); Platelet Count 256 10x3/uL (150-450); RBC Distribution Width 13.2 % (11.5-14.5); Red Blood Cell (RBC) Count 4.03 10x6/uL (3.90-5.03); White Blood Cell (WBC) Count 6.2 10x3/uL (3.5-10.5)
[2022-02-03 12:54] LABS: INR-International Normal Ratio 0.9; Prothrombin Time 9.9 sec (9.5-12.1)
[2022-02-03 12:57] LABS: Anion Gap 16 mmol/L (10-20); BUN (Urea Nitrogen) 11 mg/dL (9.8-20.1); Calc. Creatinine Clearance 0 mL/min (70-130); Calcium 10.2 mg/dL (7.8-10.44); Carbon Dioxide 28 mmol/L (23-31); Chloride 101 mmol/L (98-107); Glucose 82 mg/dL (83-110); Potassium 4.2 mmol/L (3.5-5.1); Sodium 141 mmol/L (136-145)
== END 2022-02-03 11:41 | disposition home or self-care (01) ==
LOC: LABBT 11:40
PROVIDERS: ATTEND Orthopaedic Surgery
DX: Z01.818 Encounter for other preprocedural examination (principal); M17.11 Unilateral primary osteoarthritis, right knee; Z20.822 Contact with and (suspected) exposure to COVID-19
CPT/HCPCS: 80048; 85025; 85610; 87081; 93005; U0003; U0005; 93010

== ENCOUNTER 2022-02-08 06:36 | Observation (INO) | payer MEDICARE, BC ==
[2022-02-04 12:57] VITALS: BMI 23.2
[2022-02-08] MEDS ORDERED: Tranexamic Acid 1,000 MG/10 ML VIAL ONE (07:01)
[2022-02-08] MEDS ORDERED: Sodium Chloride 0.9% 100 ML ONE ×2 (07:02→09:16)
[2022-02-08] MEDS ORDERED: Vancomycin 1 GM in Premix Bag 1 BAG IVPB SCH (07:15)
[2022-02-08] MEDS ORDERED: Fentanyl 100 MCG/2 ML VIAL ONE ×2 (08:02→11:11)
[2022-02-08] MEDS ORDERED: Midazolam HCl 2 mg/2 ml Vial ONE (08:02)
[2022-02-08] MEDS ORDERED: Vancomycin 1 GM/200 ML BAG ONE (08:13)
[2022-02-08] MEDS ORDERED: Ondansetron PF 4 MG/2 ML Vial ONE ×2 (08:35→09:30)
[2022-02-08] MEDS ORDERED: Scopolamine 1.5 mg/72 hour Patch ONE (08:35)
[2022-02-08] MEDS ORDERED: Bupivacaine PF 0.5% 30 ML VIAL ONE (08:59)
[2022-02-08] MEDS ORDERED: Acetaminophen 325 MG TAB PO PRN (08:59)
[2022-02-08] MEDS ORDERED: Promethazine HCl 25 MG/ML VIAL IM PRN ×2 (08:59→09:15)
[2022-02-08] MEDS ORDERED: Zolpidem Tartrate 5 MG TAB PO PRN ×2 (08:59→09:15)
[2022-02-08] MEDS ORDERED: Ondansetron PF 4 MG/2 ML Vial IVP PRN ×2 (08:59→09:15)
[2022-02-08] MEDS ORDERED: diphenhydrAMINE 25 MG CAP PO PRN (08:59)
[2022-02-08] MEDS ORDERED: Fentanyl 100 MCG/2 ML VIAL SLOW IVP PRN ×3 (08:59→09:08)
[2022-02-08] MEDS ORDERED: HYDROcodone/Acetaminophen 10/325 mg Tablet PO PRN ×4 (08:59→09:15)
[2022-02-08] MEDS ORDERED: fentaNYL Citrate/PF 100 MCG/2 ML SYRINGE ONE (09:06)
[2022-02-08] MEDS ORDERED: traMADol HCl 50 MG TAB PO PRN (09:15)
[2022-02-08] MEDS ORDERED: Ropivacaine 0.2% 550 ML 550 ML NERVE BLCK SCH (09:15)
[2022-02-08] MEDS ORDERED: CEFAZOLIN 2 GM VIAL ONE (09:16)
[2022-02-08] MEDS ORDERED: Bupivacaine HCl 0.5%/Epinephrine 1:200,000/PF 30 ml Vial ONE (09:30)
[2022-02-08] MEDS ORDERED: PROPOFOL 200 MG/20 ML VIAL ONE (09:30)
[2022-02-08] MEDS ORDERED: ePHEDrine 50 MG/ML VIAL ONE (09:30)
[2022-02-08] MEDS ORDERED: Lidocaine 1% PF 5 ML VIAL ONE (09:30)
[2022-02-08] MEDS ORDERED: Dexamethasone 20 MG/5 ML VIAL ONE (09:30)
[2022-02-08] MEDS ORDERED: Meperidine HCl/PF 25 MG/ML VIAL SLOW IVP PRN (09:58)
[2022-02-08] MEDS ORDERED: Promethazine HCl 25 MG/ML VIAL IVPB PRN (09:58)
[2022-02-08] MEDS ORDERED: HYDROmorphone 2 MG/ML VIAL SLOW IVP PRN (09:58)
[2022-02-08] MEDS ORDERED: Ketorolac Tromethamine 30 MG/ML VIAL IVP SCH (14:00)
[2022-02-08] MEDS: Gabapentin 300 MG CAP PO SCH ×3 (15:50→20:30)
[2022-02-08] MEDS: Ketorolac Tromethamine 30 MG/ML VIAL IVP SCH ×4 (18:00→23:20)
[2022-02-08] MEDS: CEFAZOLIN 2 GM in Sodium Chloride 0.9% 100 ML IVPB SCH (18:03)
[2022-02-08] MEDS: Aspirin 81 mg Enteric Coated Tablet PO SCH ×2 (19:47→20:32)
[2022-02-08] MEDS: Cholecalciferol 1,000 UNITS (25 MCG) TAB PO SCH (19:47)
[2022-02-08] MEDS: Vit A,C & E/Lutein/Minerals Tablet PO SCH ×2 (19:47→20:31)
[2022-02-08] MEDS: Calcium Carbonate 600 MG + Vit D TAB PO SCH ×2 (19:47→20:32)
[2022-02-08] MEDS: Fish Oil 1,000 MG CAP PO SCH (19:47)
[2022-02-08] MEDS: Sodium Chloride 0.9% 1,000 ML IV SCH ×3 (19:47→23:21)
[2022-02-08] MEDS: traMADol HCl 50 MG TAB PO PRN (20:44)
[2022-02-09] MEDS: CEFAZOLIN 2 GM in Sodium Chloride 0.9% 100 ML IVPB SCH (00:15)
[2022-02-09] MEDS: Ketorolac Tromethamine 30 MG/ML VIAL IVP SCH (05:51)
[2022-02-09] MEDS: traMADol HCl 50 MG TAB PO PRN (05:52)
[2022-02-09 06:09] LABS: Hemoglobin 11.2 g/dL (12.0-16.0); Mean Corpuscular HGB CONC 31.5 g/dL (32.0-36.0); Platelet Count 193 thou/uL (130-400); RBC Distribution Width 12.1 % (11.5-14.5); Red Blood Cell (RBC) Count 3.49 mill/uL (4.20-5.40)
[2022-02-09 07:50] VITALS: BP 105/60; TEMP 97.6
[2022-02-09] MEDS ORDERED: Ferrous Gluconate 324 MG TAB PO SCH (08:00)
[2022-02-09] MEDS ORDERED: Senokot S 8.6-50 MG TAB PO SCH (09:00)
[2022-02-09] MEDS ORDERED: Multivitamin W/ Minerals 1 TAB PO SCH (09:00)
[2022-02-09] MEDS: Calcium Carbonate 600 MG + Vit D TAB PO SCH (09:28)
[2022-02-09] MEDS: Cholecalciferol 1,000 UNITS (25 MCG) TAB PO SCH (09:29)
[2022-02-09] MEDS: Aspirin 81 mg Enteric Coated Tablet PO SCH (09:30)
[2022-02-09] MEDS: Fish Oil 1,000 MG CAP PO SCH (09:30)
[2022-02-09] MEDS: Gabapentin 300 MG CAP PO SCH (09:31)
[2022-02-09] MEDS: Vit A,C & E/Lutein/Minerals Tablet PO SCH (09:31)
== END 2022-02-09 10:20 | disposition home or self-care (01) ==
LOC: SDC 06:36 → SURG A 09:02
PROVIDERS: ADMIT Orthopaedic Surgery; ATTEND Orthopaedic Surgery
PROC: 0SRC0J9 Replacement of Right Knee Joint with Synthetic Substitute, Cemented, Open Approach (ICD-10-PCS; principal; 2022-02-08)
PROC: 8E0YXBZ Computer Assisted Procedure of Lower Extremity (ICD-10-PCS; 2022-02-08)
PROC: 3E0T3BZ Introduction of Anesthetic Agent into Peripheral Nerves and Plexi, Percutaneous Approach (ICD-10-PCS; 2022-02-08)
DX: M17.11 Unilateral primary osteoarthritis, right knee (principal); K50.90 Crohn's disease, unspecified, without complications; Z79.899 Other long term (current) drug therapy; Z88.2 Allergy status to sulfonamides; Z88.5 Allergy status to narcotic agent; Z96.652 Presence of left artificial knee joint
CPT/HCPCS: 20985; 27447; 64448; 73560; 97110; 97116; 97530; A4306; 36415; 85027; 96374; 96375; 96376; C1713; C1776; G0378; J0690; J1100; J1885; J2250; J2405; J2704; J2795; J3010; J3370; J3490; J7050; J8499; S0020